=== PATIENT | male | born 1955 | race Hispanic/Latino ===

== ENCOUNTER 2022-04-18 18:55 | Emergency (ER) | payer MEDICARE, OTHER ==
[~2022-04-18] VITALS: Ht 162.6 cm; Wt 63.2 kg
[~2022-04-18 18:55] MED LIST: CHLORDIAZEPOXID10 MG PO; LISINOPRIL10 MG PO; ONDANSETRON ODT8 MG PO; PANTOPRAZOLE SO40 MG PO; SUCRALFATE1 GM PO
[2022-04-18] MEDS ORDERED: OZEMPIC1 MG/0.71 SQ (19:15)
[2022-04-18] MEDS ORDERED: FREESTYLE LANC1 EACH MISC (19:21)
[2022-04-18] MEDS ORDERED: ROSUVASTATIN CAL5 MG PO (19:21)
[2022-04-18] MEDS ORDERED: ONDANSETRON ODT8 MG PO (20:57)
[2022-04-18] MEDS ORDERED: PROTONIX40 MG PO (20:57)
== END 2022-04-18 21:09 | disposition home or self-care (01) ==
LOC: ED 18:55
DX: K29.70 Gastritis, unspecified, without bleeding (principal); I10 Essential (primary) hypertension; E11.9 Type 2 diabetes mellitus without complications; Z88.5 Allergy status to narcotic agent; Z79.899 Other long term (current) drug therapy
CPT/HCPCS: 36415; 74177; 80053; 81003; 83690; 85025; 85610; 85730; 96361; 96375; 99284-25; A9270; C9113; G0480; J2405; J7030; Q9967